=== PATIENT | female | born 2000 | race Caucasian/White ===

== ENCOUNTER 2021-02-19 03:48 | Inpatient (IN) ==
[2021-02-19 19:13] LABS: Adenovirus Not Detected (Not Detect); Bordetella Pertussis Not Detected (Not Detect); Chlamydophila pneumoniae Not Detected (Not Detect); Coronavirus 229E Not Detected (Not Detect); Coronavirus HKU1 Not Detected (Not Detect); Coronavirus NL63 Not Detected (Not Detect); Coronavirus OC43 Not Detected (Not Detect); Human Metapneumovirus Not Detected (Not Detect); Human Rhinovirus/Enterovirus Not Detected (Not Detect); Influenza A Subtype 2009 H1 Not Detected (Not Detect); Influenza B Not Detected (Not Detect); Mycoplasma pneumoniae Not Detected (Not Detect); Parainfluenza Virus 1 Not Detected (Not Detect); Parainfluenza Virus 2 Not Detected (Not Detect); Parainfluenza Virus 3 Not Detected (Not Detect); Parainfluenza Virus 4 Not Detected (Not Detect); Respiratory Syncytial Virus Not Detected (Not Detect); SARS-CoV-2 Not Detected (Not Detect)
[2021-02-19] MEDS ORDERED: hydrOXYzine pamoate 25 MG CAPSULE PO PRN (19:34)
[2021-02-19] MEDS ORDERED: QUEtiapine Fumarate 25 MG TABLET PO PRN (19:34)
[2021-02-19] MEDS ORDERED: Acetaminophen 325 MG TABLET PO PRN (19:34)
[2021-02-19] MEDS ORDERED: Haloperidol Lactate 5 MG/ML VIAL IM PRN (19:34)
[2021-02-19] MEDS ORDERED: *HR* LORazepam 1 MG TABLET PO PRN (19:34)
[2021-02-19] MEDS ORDERED: *HR* LORazepam 2 MG/ML VIAL IM PRN (19:34)
[2021-02-19] MEDS ORDERED: haloperidoL 5 MG TABLET PO PRN (19:34)
[2021-02-20] MEDS ORDERED: Mag Hydrox/Al Hydrox/Simeth 30 ML UDC PO PRN (10:04)
[2021-02-20] MEDS ORDERED: MOM Conc 10 ML UD.LIQ PO PRN (10:04)
[2021-02-20 20:06] VITALS: TEMP 98.2
[2021-02-21 12:59] VITALS: BP 119/82; PULSE 102; O2SAT 99
== END 2021-02-21 12:46 | disposition home or self-care (01) | DRG 755 ==
LOC: EMEROOARM 03:48 → 1ANU 19:30
PROVIDERS: ADMIT Psychiatry & Neurology Psychiatry; ATTEND Psychiatry & Neurology Psychiatry